=== PATIENT | female | born 1980 | race Caucasian/White ===

== ENCOUNTER → 2019-01-15 | Outpatient (CLI) | payer OTHER, SELFPAY ==
[2019-01-15 11:56] LABS: Bacteria 0 SEEN /hpf (None Seen); Mucous, Urine 0 SEEN /hpf (<or=2+); Red Blood Cells-Urine 0 SEEN /hpf (0-5); White Blood Cells 0 SEEN /hpf (0-5)
[2019-01-15 14:15] LABS: Color, Urine Straw (Yellow); Glucose, Dipstick Normal (Normal); Ketone-Dipstick Negative (Negative); Leukocyte Esterase-Dipstick Negative /ul (Negative); Nitrite-Dipstick Negative (Negative); Occult Blood-Urine 150 /ul (Negative); Protein-Dipstick Negative (Negative); Specific Gravity, Urine 1.005 (1.002-1.030); Urine Bilirubin Dipstick Negative (Negative); Urine Clarity Clear (Clear); Urine Urobilinogen Normal (Normal)
[2019-01-15 14:25] LABS: Anion Gap 5 (5-15); BUN 9 mg/dL (7-18); BUN/Creat Ratio 11.4 RATIO (10-20); Calcium,Total 9.2 mg/dL (8.5-10.1); Chloride 106 mmol/L (98-107); Creatinine, Serum 0.79 mg/dL (0.55-1.02); EST Glomerular Filtration Rate 87 mL/min (>60); Est Glom Filt Rate - Afr Amer 105 mL/min (>60); Glucose 103 mg/dL (74-106); Potassium 3.9 mmol/L (3.5-5.1); Sodium Level 139 mmol/L (136-145)
[2019-01-15 14:26] LABS: Squamous Epithelial Cells - UA 0-5 SEEN /hpf (5-10)
== END | disposition home or self-care (01) ==
LOC: WOBLAB 11:52
PROVIDERS: Visit Provider Obstetrics & Gynecology
DX: R31.9 Hematuria, unspecified (principal)
CPT/HCPCS: 36415; 80048; 81001; 87086; 87088

== ENCOUNTER → 2019-01-17 | Outpatient (CLI) | payer OTHER, SELFPAY ==
--- NOTE | 2019-01-17 15:15 | BI_ITS ---
MAMMOGRAPHY - BILATERAL SCREENING 3-D TOMOSYNTHESIS REASON FOR EXAM: Female, 38 years old. Bilateral Screening 3-D tomosynthesis PERTINENT HISTORY: Mother with breast cancer.. TECHNIQUE: 2-D mammograms and 3-D Tomosynthesis of the breast (s) were performed. CAD was performed. COMPARISON: None. FINDINGS: The breast composition is composed of scattered fibroglandular density. Scattered benign calcifications are seen. No dense spiculated masses or suspicious microcalcifications are identified. No architectural distortion is identified. There is no skin thickening or retraction. There has been no significant change since the prior study. BI/SCREEN MAMM (CAD) W/MAYANK BILAT IMPRESSION: No mammographic signs of malignancy. Routine yearly mammograms recommended. ASSESSMENT CATEGORY: BIRADS Category 1: Negative. A letter regarding these results will be sent to the patient by the facility within 30 days. FOLLOW UP RECOMMENDATION: Yearly follow up mammogram recommended. (A) Approximately 10% of breast cancers are not detected by mammography. A normal mammogram should not delay biopsy of a clinically suspicious abnormality. Electronically Signed: Bernardino Banuelos MD at 8:09 EDT , Service support ,
== END | disposition home or self-care (01) ==
LOC: OPBI 15:12
PROVIDERS: Family Provider Family Medicine; PCP Family Medicine; Referring Provider Obstetrics & Gynecology; Visit Provider Obstetrics & Gynecology
DX: Z12.31 Encounter for screening mammogram for malignant neoplasm of breast (principal); Z80.3 Family history of malignant neoplasm of breast
CPT/HCPCS: 77063; 77067

== ENCOUNTER → 2019-01-19 | Outpatient (CLI) | payer OTHER, SELFPAY ==
--- NOTE | 2019-01-19 12:05 | US_ITS ---
STUDY: RENAL ULTRASOUND - COMPLETE REASON FOR EXAM: Female, 38 years old. Microscopic hematuria TECHNIQUE: Ultrasound evaluation of the kidneys was performed with real-time and static [place]-scale imaging. COMPARISON: None. FINDINGS: RIGHT KIDNEY: Normal location of the right kidney, which is normal in size. The right kidney measures 12.1 x 5.3 x 4.6 cm. There is a normal cortex of the right kidney. The renal cortex measures 1.0 cm. There is no right renal mass or cyst. There are no right renal calculi. There is moderate hydronephrosis of the right kidney. DISTAL RIGHT URETER: There is non-visualization of the distal right ureter. There is no demonstrated right ureterovesical junction calculus. There is a visualized right ureteral jet. LEFT KIDNEY: Normal location of the left kidney, which is normal in size. The left kidney measures 11.7 x 5.1 x 4.8 cm. There is a normal cortex of the left kidney. The renal cortex measures 1.2 cm. There is no left renal mass or cyst. There are no left renal calculi. There is moderate hydronephrosis of the left kidney. DISTAL LEFT URETER: There is non-visualization of the distal left ureter. There is no demonstrated left ureterovesical junction calculus. There is a visualized left ureteral jet. AORTA: There is no elongation or tortuosity of the abdominal aorta. I.V.C.: The IVC is patent. 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
== END | disposition home or self-care (01) ==
LOC: US 12:00
PROVIDERS: Family Provider Family Medicine; PCP Family Medicine; Referring Provider Obstetrics & Gynecology; Visit Provider Obstetrics & Gynecology
DX: N13.39 Other hydronephrosis (principal); R31.9 Hematuria, unspecified
CPT/HCPCS: 76770

== ENCOUNTER → 2019-01-24 | Outpatient (CLI) | payer OTHER, SELFPAY ==
[2019-01-24 15:46] LABS: Hematocrit 37.4 % (37-47); Hemoglobin 13.1 g/dL (12.0-15.0); Mean Corpuscular Volume 91.4 fL (81-99); Mean Platelet Vol. 9.9 fl (6.2-12.0); Platelet Count 183 K/mm3 (150-450); RBC Distribution Width CV 13.2 % (11.6-14.6); RBC Distribution Width SD 43.8 fl (35.1-43.9); Red Blood Count 4.09 M/mm3 (4.2-5.4); White Blood Count 6.3 K/mm3 (4.4-11.0)
== END | disposition home or self-care (01) ==
LOC: WOBLAB 14:52
PROVIDERS: Visit Provider Obstetrics & Gynecology
DX: R16.1 Splenomegaly, not elsewhere classified (principal)
CPT/HCPCS: 36415; 85027

== ENCOUNTER → 2019-02-05 | Outpatient (CLI) | payer OTHER, SELFPAY ==
--- NOTE | 2019-02-05 15:47 | CT_ITS ---
STUDY: CT ABDOMEN AND PELVIS WITH AND WITHOUT CONTRAST REASON FOR EXAM: Female, 38 years old. Bilateral hydronephrosis RADIATION DOSAGE (If Supplied By Facility): CTDIvol = ( 9.72 ) mGy, DLP = ( 1399.77 ) mGycm TECHNIQUE: Transaxial images were obtained from the dome of the diaphragm to the symphysis pubis without oral contrast. 100 IV Isovue 300 was administered. Sagittal and coronal images were reconstructed. Individualized dose optimization techniques were used for this CT. COMPARISON: None. FINDINGS: The visualized lung bases are unremarkable. The visualized heart appears normal. The liver appears within normal limits. Normal gallbladder and extrahepatic biliary system. Normal spleen. Normal pancreas. Normal bilateral adrenal glands. There is a severe right hydronephrosis. There is marked dilatation of the right renal pelvis. There is no hydroureter. No obstructing calculus is identified. There is a mild left hydronephrosis. There is no left hydroureter. No obstructing calculus is seen. Normal visualized stomach. Normal small intestine. Normal colon. There is non-visualization of the appendix. Normal abdominal aorta. Normal inferior vena cava. Normal retroperitoneum. Normal urinary bladder. Uterus is retroverted. Endometrium is thickened measuring up to 17 mm. There is a 2.4 cm right adnexal cyst most likely ovarian in origin. There is a tiny amount of free fluid in the deep pelvis. There is a tiny fat-containing umbilical hernia. Normal osseous structures. CT/CT Abd/Pelvis W/WO Contrast IMPRESSION: 1. Severe right hydronephrosis. There is moderate dilatation of the right renal pelvis. There is no hydroureter. No obstructing calculus is seen. 2. Mild left hydronephrosis. There is no left hydroureter. No left ureteral obstructing calculus is seen. 3. The above findings are suggestive of chronic UPJ obstruction, possibly congenital. 4. Retroverted uterus. Endometrium is thickened measuring up to 17 mm. 5. There is a 2.4 cm right adnexal cyst most likely ovarian in origin. 6. There is a tiny fat-containing umbilical hernia. 7. There is a tiny amount of free fluid in the deep pelvis. Electronically Signed: Dusty Ibarra MD at 21:32 EDT , Service support ,
== END | disposition home or self-care (01) ==
LOC: CT 15:44
PROVIDERS: Family Provider Family Medicine; PCP Family Medicine; Referring Provider Nurse Practitioner Adult Health; Visit Provider Nurse Practitioner Adult Health
DX: N13.30 Unspecified hydronephrosis (principal)
CPT/HCPCS: 74178; Q9967

== ENCOUNTER → 2019-02-09 | Outpatient (CLI) | payer OTHER, SELFPAY ==
--- NOTE | 2019-02-09 09:37 | NM_ITS ---
CLINICAL: 38-year-old female with reported history of bilateral hydronephrosis. 99m Tc MAG3 DIURETIC RENAL SCINTIGRAPHY COMPARISON: Renal ultrasound report 01/19/2019, CT of the abdomen-pelvis report 02/05/2019 FINDINGS: Following the intravenous administration of 10.5 mCi of 99m Tc MAG3, renal images reveal: 1. The flow study demonstrates relatively symmetric, normal arterial phase distribution of the radiopharmaceutical to the bilateral kidneys. 2. Immediate static delayed nephrogram images depict relatively prompt, homogeneous tracer concentration is identified in both kidneys. Collecting structure visualization is demonstrated approximately 3 minutes following tracer injection bilaterally. Washout of the radiopharmaceutical by the renal parenchyma appears qualitatively normal in both kidneys. Increasing significant collecting system activity is identified in both kidneys during 25 minutes of pre-Lasix sequential image acquisition. 3. The iwxro-vd-lexc ratio of total renal parenchymal function was calculated to be 49/51. Furosemide 10 mg was administered intravenously. The post Lasix T 1/2 washout of the bilateral kidney collecting system activity was calculated to be approximately 4 minutes in the left kidney 9.5 minutes regarding the right kidney, (normal < 10 minutes). There is significant tracer distribution identified in the right renal unit following Lasix administration. NM/Renal Scan w/ Pharm Intervent IMPRESSION: 1. There is relative preservation of bilateral renal parenchymal function involving both kidneys. 2. The left and right prominent collecting systems demonstrating normal physiologic response to induced diuresis indicating the presence of significant mechanical and/or functional obstruction. Electronically Signed: Андрей Luther DO at 8:17 EDT Tel , Service support ,
== END | disposition home or self-care (01) ==
LOC: NM 09:33
PROVIDERS: Family Provider Family Medicine; PCP Family Medicine; Referring Provider Urology; Visit Provider Urology
DX: N13.0 Hydronephrosis with ureteropelvic junction obstruction (principal)
CPT/HCPCS: 78708; A9562; J1940

== ENCOUNTER → 2019-02-28 | Outpatient (CLI) | payer OTHER, SELFPAY ==
[2019-02-28 17:56] LABS: AST(SGOT) 20 U/L (15-37); Alanine Aminotransfer ALT/SGPT 23 U/L (13-56); Albumin, Serum 4.1 g/dL (3.2-5.0); Alkaline Phosphatase 41 U/L (45-117); Anion Gap 7 (5-15); BUN 11 mg/dL (7-18); BUN/Creat Ratio 13.2 RATIO (10-20); Bilirubin, Direct 0.29 mg/dL (0.00-0.30); Chloride 108 mmol/L (98-107); Creatinine, Serum 0.83 mg/dL (0.55-1.02); EST Glomerular Filtration Rate 82 mL/min (>60); Est Glom Filt Rate - Afr Amer 99 mL/min (>60); Globulin 3.1 g/dL (2.2-4.2); Glucose 114 mg/dL (74-106); Potassium 3.6 mmol/L (3.5-5.1); Protein, Total 7.2 g/dL (6.4-8.2); Sodium Level 141 mmol/L (136-145)
== END | disposition home or self-care (01) ==
LOC: MFPLAB 15:01
PROVIDERS: Family Provider Family Medicine; PCP Family Medicine; Referring Provider Family Medicine; Visit Provider Family Medicine
DX: N13.30 Unspecified hydronephrosis (principal); E80.4 Gilbert syndrome
CPT/HCPCS: 36415; 80048; 80076

== ENCOUNTER 2019-03-14 05:49 | Day surgery (SDC) | payer OTHER, SELFPAY ==
[2019-03-08 10:23] VITALS: BP 141/79; PULSE 73; RESP 16; TEMP 36.9; O2SAT 100; BMI 20.7
--- NOTE | 2019-03-08 10:58 | SDCEKG_ITS ---
Test Reason : Blood Pressure : / mmHG Vent. Rate : 069 BPM Atrial Rate : 069 BPM P-R Int : 104 ms QRS Dur : 090 ms QT Int : 390 ms P-R-T Axes : 063 080 036 degrees QTc Int : 417 ms Sinus rhythm with short PA Otherwise normal ECG Confirmed by KATIA KNIGHT, MELVIN ([id number]), acquisition editor COLBY SKELTON ([id number]) on 03/12/2019 3:18:41 PM Referred By: Alberto Doshi Confirmed By:DAVID MONTALVO MD
[2019-03-08 11:34] LABS: Hematocrit 38.1 % (37-47); Hemoglobin 13.6 g/dL (12.0-15.0); Mean Corp Hgb Conc 35.7 g/dL (32-36); Mean Corpuscular Hgb 32.8 pg (27.0-32.0); Mean Corpuscular Volume 91.8 fL (81-99); Mean Platelet Vol. 9.7 fl (6.2-12.0); Platelet Count 190 K/mm3 (150-450); RBC Distribution Width CV 13.1 % (11.6-14.6); RBC Distribution Width SD 43.6 fl (35.1-43.9); Red Blood Count 4.15 M/mm3 (4.2-5.4); White Blood Count 5.1 K/mm3 (4.4-11.0)
[2019-03-14] VITALS (12 sets, daily range): BP systolic 101–137; BP diastolic 62–87; PULSE 52–79; RESP 14–18; TEMP 36.4–37.3; O2SAT 99–100; BMI 19.8
[2019-03-14 06:17] LABS: Internal QC Validated? YES +Cl - CLEAR BKGD; Pregnancy, Urine Negative Negative
[2019-03-14] MEDS: Lactated Ringers 1,000 ML 75 ML IV ×3 (06:40→12:54)
[2019-03-14] MEDS: Cefazolin 2 GM in 0.9% Normal Saline 100 ML IV (07:28)
[2019-03-14] MEDS: Bupivacaine Mpf 0.5% 30 ML VIAL (09:56)
--- NOTE | 2019-03-14 09:58 | PCM.OPRPT ---
Report of Operation Date of Procedure: 03/14/19 Pre-Operative Diagnosis: Right UPJ obstruction Post-Operative Diagnosis: Right UPJ obstruction with crossing vessel causing the obstruction Surgery/Procedure Performed:: Right laparoscopic robotic assisted dismembered pyeloplasty Description of Surgical Findings:: 38-year-old female who was found to have a very large dilated right renal pelvis she is been experiencing intermittent right flank pain. Renal scan was done that demonstrated very large dilated renal pelvis no clear obstruction. But given her intermittent pain and very large pelvis I think she has some sort of obstruction so I am recommending that we proceed with repair of the right UPJ obstruction with a dismembered pyeloplasty. We talked about the procedure itself how is done the risk of anesthesia, risk of bleeding infection, that she will need a stent in for 4 to 6 weeks afterwards and the risk that the surgical procedure will fail. 38-year-old female was taken back to the operating room after smooth induction of anesthesia she was placed supine on the table we then placed her in full lateral position with the right side up left side down place an axillary roll below her axilla arms out on the side and then her arms and holders. We flexed the table some and top leg straight but leg bottom leg was bent we flexed all and padded all pressure points after the patient was secured to the table in a meticulous fashion to make sure all her pressure points were padded the abdomen was shaved prepped and draped in usual sterile fashion. I then made a small incision in the umbilicus infiltrated this with Marcaine and then advanced the Veress needle into the peritoneal cavity and then insufflated the peritoneal cavity with CO2 gas once we had a good pneumoperitoneum then I placed my camera trocar which was a 10 mm trocar in the umbilicus and then superior to this I placed my 8 mm trocar and then inferior to this in place another 8 mm robotic trocar. We then docked the robot and then I docked with the scissors and the pro-grasp in my right and left arm and started with the dissection first thing I did was incised the white line of Toldt reflected the colon off the kidney from the liver all the way down to the pelvis she did have a very large floppy liver over the kidney. Immediately when we were inside the abdomen we could see this extremely large distended renal pelvis as we dissected down onto the renal pelvis I then freed up the blood vessels over the top the renal pelvis and then to set the renal pelvis on traction and then identified the ureter and then he can immediately identify that the ureter was crossing below and inferior vessel both in artery and the vein that was feeding the kidney inferiorly and could see that as the renal pelvis with the stent this would cause the ureter to kink around the blood vessels to the kidney causing obstruction of the right renal pelvis. After this was recognized and I continued the dissection of the ureter below the apparent inferior pole renal artery and vein these were not transected but spared I then dissected inferior to this to dissect the ureter free I put a vessel loop around the ureter to assist in dissection to avoid any grasping of the ureter itself to avoid any trauma to the ureter I then once that the ureter was completely dissected inferior to the crossing vessels then I went back up to the insertion point of the ureter to the pelvis during this dissection as I was pulling the ureter straight the renal pelvis then drained through the ureter even before cutting it so just straighten out the ureter and allow the renal renal pelvis the drain completely normal but given the fact that the ureter was crossing below the crossing vessels I decided to proceed with a dismembered pyeloplasty in order to pass the ureter over the top of the crossing vessels that was causing obstruction. We transected the ureter at the insertion site of the renal pelvis the ureter was then freed up and then passed below the crossing vessels and then crossed above the crossing vessels I then spatulated the ureter the ureter was wide open the insertion into the renal pelvis was wide open I decided not to do a reduction of the size of the renal pelvis since the problem was not the size of the renal pelvis but was a crossing vessels and by doing a dismembered pyeloplasty was placed in the ureter on top of the vessels and therefore alleviating the obstruction. We spatulated the ureter make sure the ureter orientation was perfect placed our first a stitch from the ureter to the renal pelvis we then placed 2 more stay stitches posterior of the ureter to hold the ureter in good position we then passed a wire top-down through the ureter all the way down to the bladder and then the past pushes stent top-down is a 6 [place] by 26 cm stent once a stent was in proper position and pulled the wire and then we do not the end of the stent into the renal pelvis I then continued with the pyeloplasty and I ran interrupted stitches all the way from posterior to anterior reanastomose seen in the ureter to the renal pelvis over the over the stent in a meticulous fashion. During this dissection then the anastomosis was complete this completed the dismember pyeloplasty there was good drainage from the renal pelvis into the ureter directly and the ureter again was placed on top of the crossing vessels that was causing obstruction. We then undocked the robot and we used our 8 mm camera to then closed our umbilical 1012 port with 3 stitches and then we then we closed the other ports with subcuticular stitches. Patient anesthetic is being reversed and she taken back to the PACU in good condition and there was a successful repair of the UPJ obstruction. Caused by a crossing vessel. Type of Anesthesia:: General Drains: stent right side - Admit VTE Documentation VTE Present on Admission: No
[2019-03-14] MEDS: Pantoprazole Sodium 20 MG Tablet PO (12:48)
[2019-03-14] MEDS: Docusate Sodium 100 MG Capsule PO ×2 (12:48→21:08)
[2019-03-14] MEDS: Magnesium Hydroxide 30 ML UDC 15 ML PO (12:49)
[2019-03-14] MEDS: Ketorolac 15 MG/ML Vial IV ×3 (12:49→23:20)
[2019-03-14] MEDS: Cefazolin 1 GM/50 ML BAG IV ×2 (15:04→21:08)
--- NOTE | 2019-03-14 16:48 | NURSING ---
C/O DIZZINESS WHILE LYING IN BED. SCOPOLAMINE PATCH REMOVED. WILL WAIT TO GET UP TO CHAIR LATER.
[2019-03-14] MEDS: 0.9% NaCl Peripheral Flush Adult/Peds IV (18:34)
[2019-03-15] MEDS: Lactated Ringers 1,000 ML 75 ML IV (03:26)
[2019-03-15 03:35] VITALS: BP 113/75; PULSE 52; RESP 16; TEMP 36.5; O2SAT 100
[2019-03-15 05:43] LABS: Hematocrit 33.5 % (37-47); Hemoglobin 11.9 g/dL (12.0-15.0); Mean Corp Hgb Conc 35.5 g/dL (32-36); Mean Corpuscular Hgb 32.6 pg (27.0-32.0); Mean Corpuscular Volume 91.8 fL (81-99); Mean Platelet Vol. 9.9 fl (6.2-12.0); Platelet Count 154 K/mm3 (150-450); RBC Distribution Width CV 13.2 % (11.6-14.6); RBC Distribution Width SD 43.6 fl (35.1-43.9); Red Blood Count 3.65 M/mm3 (4.2-5.4); White Blood Count 9.6 K/mm3 (4.4-11.0)
[2019-03-15 06:09] LABS: Anion Gap 7 (5-15); BUN 5 mg/dL (7-18); BUN/Creat Ratio 7.6 RATIO (10-20); Calcium,Total 8.2 mg/dL (8.5-10.1); Chloride 107 mmol/L (98-107); Creatinine, Serum 0.66 mg/dL (0.55-1.02); EST Glomerular Filtration Rate 106 mL/min (>60); Est Glom Filt Rate - Afr Amer 129 mL/min (>60); Estimated Creatinine Clearance 109.62 ml/min; Glucose 96 mg/dL (74-106); Potassium 3.7 mmol/L (3.5-5.1); Sodium Level 141 mmol/L (136-145)
[2019-03-15] MEDS: Enoxaparin 40 MG/0.4 ML Syringe SC (06:31)
[2019-03-15] MEDS: Ketorolac 15 MG/ML Vial IV (06:32)
--- NOTE | 2019-03-15 07:37 | DCINST_ITS ---
Discharge Diet: Light diet - advance as tolerated Discharge Activity: Return to Normal Activity Lifting Restrictions: 10 lbs x 6 weeks Call your doctor if your incision/area has: Continuous Slow Oozing, Sudden Increased Bleeding, Increased Pain/ Swelling, Increased Redness, Foul Smelling Discharge, Swelling at the incision site Suture Line Care: Avoid Pulling/Pushing, Avoid Pinching/Bending Allergies/Adverse Reactions: Allergies No Known Allergies Allergy (Verified 03/08/19 10:16) Medications to take at Discharge Ascorbic Acid [Vitamin C] 1,000 mg PO PRN PRN 03/08/19 Daily Super Greens 1 unit PO DAILY 03/08/19 Viral-X 1 - 2 drp PO DAILY 03/08/19 Hydrocodone/Acetaminophen [[place] 5-325 Tablet] 1 ea PO Q4H PRN PRN 5 Days #10 tab 03/15/19 Primary Care Physician: Jalil Krueger MD [Primary Care Provider] - Test Results: Test results from this visit will be discussed in further detail at your follow- up appointment, if applicable. Please Follow Up With: Alberto Doshi MD When: in 2 weeks, please call to make an appointment.
[2019-03-15 08:02] VITALS: BP 128/86; PULSE 60; RESP 18; TEMP 36.7; O2SAT 95
== END 2019-03-15 11:00 | disposition home or self-care (01) ==
LOC: SDC 05:50 → AC 05:51 → MS3 10:50
PROVIDERS: Anesthesiology; Family Provider Family Medicine; PCP Family Medicine; Referring Provider Urology; Visit Provider Urology
PROC: 8E0W4CZ Robotic Assisted Procedure of Trunk Region, Percutaneous Endoscopic Approach (ICD-10-PCS; CPT 50544; principal; 2019-03-14 07:00)
DX: N13.5 Crossing vessel and stricture of ureter without hydronephrosis (principal); Q62.39 Other obstructive defects of renal pelvis and ureter; G25.81 Restless legs syndrome; E80.4 Gilbert syndrome; Z86.2 Personal history of diseases of the blood and blood-forming organs and certain disorders involving the immune mechanism
CPT/HCPCS: 00862; 50544; S2900; 36415; 80048; 81025; 85027; 86850; 86900; 86901; 93005; J7120; A4216; C1769; C2617; J2405

== ENCOUNTER 2019-06-14 13:24 | Day surgery (SDC) | payer OTHER, SELFPAY ==
[2019-03-14 06:30] VITALS: BMI 19.8
[2019-06-12 13:27] LABS: Hemoglobin 14.3 g/dL (12.0-15.0); Mean Corp Hgb Conc 35.8 g/dL (32-36); Mean Corpuscular Hgb 32.4 pg (27.0-32.0); Mean Corpuscular Volume 90.7 fL (81-99); Mean Platelet Vol. 9.7 fl (6.2-12.0); Platelet Count 198 K/mm3 (150-450); RBC Distribution Width CV 12.9 % (11.6-14.6); RBC Distribution Width SD 42.2 fl (35.1-43.9); Red Blood Count 4.41 M/mm3 (4.2-5.4); White Blood Count 6.5 K/mm3 (4.4-11.0)
[2019-06-12 13:32] LABS: International Normalized Ratio 1.2; Prothrombin Time (Protime)PT. 14.7 SECONDS (11.7-14.9)
[2019-06-12 13:33] LABS: Partial Thromboplast Time 32.4 Seconds (24.1-36.2)
--- NOTE | 2019-06-13 08:45 | PCM.HPOB.BLA ---
- Problem List (1) Abnormal uterine bleeding Status: Acute History and Physical Date of Admission: 06/14/19 Date: 06/12/2019 Name: ALDO MEJIAS Age: 39 Date of : 1980 HISTORY OF PRESENT ILLNESS: On 06/12/2019, Aldo Mejias, a 39 year old female 2 2 0 0 4, presented for: -- Pre-Op -- Aldo is here for pre-op. Planned hysteroscopy with polypectomy. Consents are signed and packet provided. LMT as above. Completed urologic evaluation and repair of UPJ obstruction with resolution of pain. Notes continued prolonged menstrual bleeding up to 9-10 days, no intermenstrual bleeding or postcoital bleeding. Prior US suggested endometrial polyp. ULTRASOUND 01/15/19: UTERUS: 8.7 x 6.3 x 5.9 cm. ENDOMETRIAL ECHO: Fluid filled and somewhat irregular in appearance. Anterior wall measures .3 cm and posterior wall measures .4 cm. Overall measurement is 1.3 cm. The irregular texture within the Endometrium does not contain blood flow. RIGHT OVARY: 3 x 2.4 x 1.9 cm and contains a 1.3 x .9 x 1.1 cm follicle. LEFT OVARY: Not seen vaginally or abdominally. FREE FLUID: There is a trace amount of free fluid within the posterior cul de sac. OTHER PERTINENT FINDINGS: There is a large amount of peristalsing bowel seen throughout the pelvis. While performing the abdominal pelvic ultrasound, bilateral Kidneys were viewed and the right renal pelvis measures 8 cm in maximum dimension. The left renal pelvis measures 4 cm. ALLERGIES: No Known Drug Allergies MEDICATIONS HISTORY: Patient is also takin. No Meds REVIEW OF SYSTEMS: GENERAL - Denies fever, or chills SKIN - Denies skin changes EYES - Denies visual changes EARS - Denies difficulty hearing NOSE - Denies nasal congestion or bleeding MOUTH - Denies sore throat or difficulty swallowing NECK - Denies pain or swelling RESPIRATORY - Denies shortness of breath or wheezing CARDIOVASCULAR - Denies palpitations or chest pain GASTROINTESTINAL - Denies nausea, vomiting, diarrhea, constipation GENITOURINARY - irregular bleeding MUSCULOSKELETAL - Denies joint or muscle pain NEUROLOGICAL - Denies localized numbness or weakness PSYCHIATRIC - Denies depression or anxiety ENDOCRINE - Denies heat or cold intolerance, weight loss or gain HEMATO-IMMUNOLOGIC - Denies excesive bleeding with cuts PAST HISTORY: Breast/Ovarian/Colon Cancers - Mother had Breast Cancer approximately age 50-60 Infections - Chicken pox Illnesses - arthritis, jaundice d/t gilberts syndrome, elevated BP with prgnancy Accidents - None History of Abnormal PAPS - Denies Hospitalizations - Childbirth and see surgery last pap 06/2015; SURGICAL HISTORY: 1. c-sections 2001, 2003, 2005, 2010 2. Staples Teeth Removal 3. cerclage 2003, 2005, 2009 MENSTRUAL HISTORY: LMP Known?- DefiniteAmount/Duration - 7 days, Regularity - Regular, Frequency - monthly days, LMP - 05/27/19, Age Onset Menarche - 13 PAST PREGNANCIES: Total Pregnancies - 4; Full Term Pregnancies - 2; Premature - 2; Abortions, Induced - 0; Abortions, Spontaneous - 0; Ectopics - 0; Multiple Births - 0; Living Children - 4 FAMILY HISTORY: Mother - Carcinoma of breast; MaternalGrandparent - Heart disorder; PaternalGrandparent - FH: Congestive heart failure; SOCIAL HISTORY: Alcohol Use - denies drinking Smoking - denies smoking Diet - no special diet Lifestyle - Exercise - minimal Seat Belt Use - always Employer - stay at home Illicit Drug Use - denies use of street drugs Sexual Activity - Residence - owns a home Spouse-Sig Other Name - Dillon Fonsecaer Spouse-Sig Other Occupation - [employer] Children Name(s) - Nas Garcia Marla, Kenna Control - NFP, Condoms PHYSICAL EXAMINATION BP- 140/86 Sitting, Right arm, regular cuff Temp- 98.8 Taken Orally Weight- 139.00 lbs Height- 67.25 inch BMI:21.65 CONSTITUTIONAL - NAD, well nourished, and well developed SKIN - No rash, lesions, or ulcers HEENT - normocephalic, atraumatic, sclerae anicteric LUNGS - clear to auscultation and normal respiratory rate and rhythm CARDIAC - normal heart sounds and physiologic rhythm, normal s1, normal s2 and no s3 NEUROLOGICAL - normal gait, normal balance, normal motor PSYCHIATRIC - A and O to time, place, person, mood and affect Laboratory Tests 06/12/19 06/12/19 06/12/19 Range/Units 12:56 12:56 12:56 WBC 6.5 (4.4-11.0) K/mm3 RBC 4.41 (4.2-5.4) M/mm3 Hgb 14.3 (12.0-15.0) g/dL Hct 40.0 (37-47) % MCV 90.7 (81-99) fL MCH 32.4 H (27.0-32.0) pg MCHC 35.8 (32-36) g/dL RDW Std Deviation 42.2 (35.1-43.9) fl RDW Coeff of Liliana 12.9 (11.6-14.6) % Plt Count 198 (150-450) K/mm3 MPV 9.7 (6.2-12.0) fl PT 14.7 (11.7-14.9) SECONDS INR 1.2 APTT 32.4 (24.1-36.2) Seconds Blood Type A POSITIVE Antibody Screen NEGATIVE ASSESSMENT: PLAN BY DIAGNOSIS: 1. Irregular Menstruation, Unspecified US findings reviewed with pt and c/w likely polyp Discussed polyp pathology Hysteroscopic polypectomy, D&C Procedural r/b/i/a reviewed Consents signed and reviewed Discussed anticipated hospitalization and recovery NPO prior to procedure
[2019-06-14 13:42] VITALS: BP 139/78; PULSE 82; RESP 15; TEMP 36.7; O2SAT 100; BMI 20.4
[2019-06-14 13:49] LABS: Internal QC Validated? YES +Cl - CLEAR BKGD; Pregnancy, Urine Negative Negative
[2019-06-14] MEDS: Lactated Ringers 1,000 ML 100 ML IV (13:54)
--- NOTE | 2019-06-14 14:55 | EMB_PTH ---
PATIENT: ALDO MEJIAS LOC: [facility] [place] U#:[id number] AGE/SX: 39/F ROOM: RE06/14/[address]: Dr. Coreen Smallwood MD : 1980 BED: DIS: 06/14/2019 SPEC #: [id number] RECD: 06/14/19 16:21 STATUS: TRAMAINE REQ #: [id number] FREDDIE: 06/14/19 14:[address]: Coreen Gonzalez DEPT: SURGICAL PATHOLOGY RECD BY: David Tovar ENTERED: 06/15/19 10:54 SP TYPE: ENDOM BX/C OTHR DR: Dr. Jalil Krueger MD Tissues: Endometrium, NOS Procedures: Surgery Specimen Level IV HEADER OPERATION: Hysteroscopy, D & C Symphion PRE-OP DIAGNOSIS: Abnormal uterine bleeding TISSUE SUBMITTED: Endometrial curettings MICROSCOPIC DIAGNOSIS Endometrial curettings: Secretory endometrium. SJ:jesus 06/18/19 MICROSCOPIC DESCRIPTION Slides are reviewed. GROSS DESCRIPTION Received in fixative is one container labeled with the patient's name and designated Endometrial curettings. The specimen consists of multiple irregular fragments of ramon soft tissue that in aggregate measure 5 x 3 x 0.3 cm. The entire specimen is submitted in two cassettes. / SJ:rg 06/15/19 TC:4 CPT: 36051
[2019-06-14 16:02] VITALS: BP 135/79; BP 139/78; PULSE 77; RESP 16; TEMP 37.3; O2SAT 99
[2019-06-14 16:06] VITALS: BP 129/81; BP 139/78; PULSE 80; RESP 16; O2SAT 100
--- NOTE | 2019-06-14 16:08 | DCINST_ITS ---
Discharge Diet: No Restrictions Discharge Activity: Return to Normal Activity, May not drive while taking narcotic pain medications., May Shower, - - May take a tub bath in 1-2 weeks May resume sexual activity in: 4 weeks Call your doctor if you observe: Fever of 101 or Higher, Inability to urinate, Inability to have a bowel movement, Using more than one pad per hour, Shortness of breath, Chest pain, Calf discomfort, Uncontrolled pain Allergies/Adverse Reactions: Allergies No Known Allergies Allergy (Verified 06/14/19 13:34) Medications to take at Discharge Ascorbic Acid [Vitamin C] 1,000 mg PO PRN PRN 03/08/19 Daily Super Greens 1 unit PO DAILY 03/08/19 Viral-X 1 - 2 drp PO DAILY 03/08/19 Multivitamin [Daily Multiple Vitamin] 1 ea PO DAILY 06/11/19 Ibuprofen 600 mg PO TID PRN #30 tab 06/14/19 The following prescriptions were given: Ibuprofen 600 mg PO TID PRN #30 tab PRN Reason: Pain Or Fever Primary Care Physician: Jalil Krueger MD [Primary Care Provider] - Test Results: Test results from this visit will be discussed in further detail at your follow- up appointment, if applicable. Please Follow Up With: Coreen Myles MD
[2019-06-14 16:10] VITALS: BP 126/82; BP 139/78; PULSE 74; RESP 16; O2SAT 99
--- NOTE | 2019-06-14 16:10 | PCM.OPRPT ---
Problem List (1) Abnormal uterine bleeding Status: Acute Report of Operation Date of Procedure: 06/14/19 Pre-Operative Diagnosis: Excessive and frequent menstruation with regular cycle, endometrial polyp Post-Operative Diagnosis: Excessive and frequent menstruation with regular cycle, endometrial polyp Surgery/Procedure Performed:: Hysteroscopy, dilation and curettage, Symphion polypectomy Description of Surgical Findings:: bilateral tubal ostia normal, normal uterine cavity structural steel fitter: None Type of Anesthesia:: IV Sedation, Local Anesthesiologist: Zay Cordova Estimated Blood Loss (mL): 5 Description of Procedure: Patient was brought to the operating and placed in dorsal supine position. IV sedation administered. She was placed in dorsal lithotomy. The perineum was prepped and draped in sterile fashion. A weighted speculum was placed vaginally and single tooth tenaculum grasped the anterior cervix. A paracervical block was placed for a total of 20cc of 1% lidocaine. The uterus was sounded to 8cm and cervix dilated. The Symphion hysteroscopy was performed. The Symphion resectoscope was introduced and anterior polyp removed. A sampling of the endometrium was also resected. The hysteroscope was removed. Sharp curettage was subsequently performed. Hysteroscopy again performed and the uterus was without defects. The procedure was complete. The tenaculum was removed from the cervix and speculum removed from the vagina. The patient was placed into dorsal supine position, awakened and transferred to the recovery room without complication. - Admit VTE Documentation VTE Present on Admission: No VTE Mechan Device Prophylaxis: SCD's VTE Pharm Prophylaxis ordered?: No
[2019-06-14 16:15] VITALS: BP 129/79; BP 139/78; PULSE 81; RESP 16; TEMP 37.3; O2SAT 100
[2019-06-14 17:01] VITALS: BP 128/79; BP 139/78; PULSE 82; RESP 16; TEMP 37.2; O2SAT 100
== END 2019-06-14 17:04 | disposition home or self-care (01) ==
LOC: SDC 13:24 → AC 13:25
PROVIDERS: Anesthesiology; Family Provider Family Medicine; PCP Family Medicine; Referring Provider Obstetrics & Gynecology; Visit Provider Obstetrics & Gynecology
PROC: 0UB98ZZ Excision of Uterus, Via Natural or Artificial Opening Endoscopic (ICD-10-PCS; CPT 58558; principal; 2019-06-14 14:40)
DX: N84.0 Polyp of corpus uteri (principal); N92.0 Excessive and frequent menstruation with regular cycle; M19.90 Unspecified osteoarthritis, unspecified site; Z86.2 Personal history of diseases of the blood and blood-forming organs and certain disorders involving the immune mechanism
CPT/HCPCS: 58558; 36415; 81025; 85027; 85610; 85730; 86850; 86900; 86901; 88305; J7120

== ENCOUNTER → 2020-03-18 | Outpatient (CLI) | payer OTHER, SELFPAY ==
[2020-03-18 10:43] VITALS: BMI 20.7
[2020-03-24 01:43] LABS: HPV APTIMA, High Risk Negative (Negative)
== END | disposition home or self-care (01) ==
LOC: LABSPEC 16:14
PROVIDERS: PCP Family Medicine; Referring Provider Obstetrics & Gynecology; Visit Provider Obstetrics & Gynecology
DX: Z12.4 Encounter for screening for malignant neoplasm of cervix (principal)
CPT/HCPCS: 87624; 88175; G0145

== ENCOUNTER → 2020-12-19 08:51 | Outpatient (CLI) | payer OTHER, SELFPAY ==
[2020-03-18 10:43] VITALS: BMI 20.7
--- NOTE | 2020-12-19 08:56 | RAD_ITS ---
Patient swallowed barium without difficulty. The esophagus was well delineated with barium no evidence of obstruction or filling defect. This was followed by swallowing tablet of barium this remained for some time in the middle of the esophagus then passed down to the stomach after drinking water. No evidence of hiatal hernia or gastroesophageal reflux was noted. The stomach and duodenum are unremarkable. RAD/Esophagus Single Contrast IMPRESSION: Negative esophagogram. Electronically Signed: Hernesto Gilbert, at 10:53 EDT Tel , Service support ,
== END ==
PROVIDERS: PCP Family Medicine; Referring Provider Family Medicine; Visit Provider Family Medicine
DX: R13.10 Dysphagia, unspecified (principal)
CPT/HCPCS: 74220

== ENCOUNTER 2021-08-19 07:48 | Outpatient (CLI) | payer OTHER, SELFPAY ==
--- NOTE | 2021-08-19 07:50 | BI_ITS ---
MAMMOGRAPHY - BILATERAL SCREENING REASON FOR EXAM: Female, 41 years old. Routine annual screening examination. PERTINENT HISTORY: Mother with breast cancer. TECHNIQUE: Digital bilateral breast mayank (3D mammographic acquisition) in the CC and MLO projections. 2-D mediolateral oblique (MLO) and craniocaudad (CC) views of both breasts were obtained. CAD: Full Field Digital Mammography with Computer Added Detection was performed. COMPARISON: Comparison is made with prior study dated 01/17/2019. FINDINGS: Breast Composition: The breasts are heterogeneously dense, which may obscure small masses. There are no dominant masses or suspicious calcifications. No other significant abnormalities are identified. There has been no significant change since the prior study. BI/SCRN MAMM (CAD)W/MAYANK BILAT IMPRESSION: Stable bilateral screening mammogram. Yearly follow-up mammogram recommended. (A) ASSESSMENT CATEGORY: BIRADS Category 1: Negative. A letter regarding these results will be sent to the patient by the facility within 30 days. Approximately 10% of breast cancers are not detected by mammography. A normal mammogram should not delay biopsy of a clinically suspicious abnormality. [id number] Electronically Signed: Moody Reeves MD at 9:40 EST ,
== END 2021-08-19 23:59 | disposition home or self-care (01) ==
LOC: OPBI 07:48
PROVIDERS: PCP Family Medicine; Visit Provider Nurse Practitioner Women's Health
DX: Z12.31 Encounter for screening mammogram for malignant neoplasm of breast (principal)
CPT/HCPCS: 77063; 77067

== ENCOUNTER → 2022-09-03 | Outpatient (CLI) | payer OTHER, SELFPAY ==
--- NOTE | 2022-09-03 07:28 | BI_ITS ---
MAMMOGRAPHY - BILATERAL SCREENING REASON FOR EXAM: Female, 42 years old. Routine annual screening examination. PERTINENT HISTORY: Mother with breast cancer. TECHNIQUE: Digital bilateral breast mayank (3D mammographic acquisition) in the CC and MLO projections. 2-D mediolateral oblique (MLO) and craniocaudad (CC) views of both breasts were obtained. CAD: Full Field Digital Mammography with Computer Added Detection was performed. COMPARISON: Comparison is made with prior study dated August 19, 2021 and January 17, 2019. FINDINGS: Breast Composition: The breasts are heterogeneously dense, which may obscure small masses. There are no dominant masses or suspicious calcifications. No other significant abnormalities are identified. There has been no significant change since the prior study. BI/SCRN MAMM (CAD)W/MAYANK BILAT IMPRESSION: Stable bilateral screening mammogram. Yearly follow-up mammogram recommended. (A) ASSESSMENT CATEGORY: BIRADS Category 1: Negative. A letter regarding these results will be sent to the patient by the facility within 30 days. Approximately 10% of breast cancers are not detected by mammography. A normal mammogram should not delay biopsy of a clinically suspicious abnormality. [id number] Electronically Signed: Moody Reeves MD at 8:44 EST ,
== END | disposition home or self-care (01) ==
LOC: OPBI 07:27
PROVIDERS: PCP Family Medicine; Referring Provider Nurse Practitioner Women's Health; Visit Provider Nurse Practitioner Women's Health
DX: Z12.31 Encounter for screening mammogram for malignant neoplasm of breast (principal)
CPT/HCPCS: 77063; 77067

== ENCOUNTER → 2022-09-24 | Outpatient (CLI) | payer OTHER, SELFPAY ==
[2022-09-24 09:31] LABS: ALB/GLOB Ratio 1.3 RATIO (0.9-2.4); AST(SGOT) 19 U/L (15-37); Alanine Aminotransfer ALT/SGPT 23 U/L (13-56); Albumin, Serum 4.3 g/dL (3.2-5.0); Alkaline Phosphatase 41 U/L (45-117); Anion Gap 6 (5-15); BUN 12 mg/dL (7-18); BUN/Creat Ratio 13.4 RATIO (10-20); Calcium,Total 9.4 mg/dL (8.5-10.1); Chloride 106 mmol/L (98-107); Cholesterol 191 mg/dL (200); Creatinine, Serum 0.89 mg/dL (0.55-1.02); EST Glomerular Filtration Rate 74 mL/min (>60); Est Glom Filt Rate - Afr Amer 89 mL/min (>60); Globulin 3.2 g/dL (2.2-4.2); Glucose 98 mg/dL (74-106); High Density Lipoprotein 72 mg/dL; Protein, Total 7.5 g/dL (6.4-8.2); Sodium Level 138 mmol/L (136-145); Thyroid Stim Hormone (TSH) 2.86 uIU/mL (0.358-3.74); Triglycerides 59 mg/dL; Very Low Density Lipoprotein 12 mg/dL (5-40)
== END | disposition home or self-care (01) ==
PROVIDERS: PCP Family Medicine; Referring Provider Nurse Practitioner Women's Health; Visit Provider Nurse Practitioner Women's Health
DX: E80.4 Gilbert syndrome (principal); Z13.1 Encounter for screening for diabetes mellitus; Z13.220 Encounter for screening for lipoid disorders; Z13.29 Encounter for screening for other suspected endocrine disorder; Z13.21 Encounter for screening for nutritional disorder
CPT/HCPCS: 36415; 80053; 80061; 82306; 84443

== ENCOUNTER → 2023-09-16 | Outpatient (CLI) | payer OTHER, SELFPAY ==
--- NOTE | 2023-09-16 08:13 | BI_ITS ---
MAMMOGRAPHY - BILATERAL SCREENING REASON FOR EXAM: Female, 43 years old. Routine annual screening examination. PERTINENT HISTORY: Mother with breast cancer. TECHNIQUE: Digital bilateral breast mayank (3D mammographic acquisition) in the CC and MLO projections. 2-D mediolateral oblique (MLO) and craniocaudad (CC) views of both breasts were obtained. CAD: Full Field Digital Mammography with Computer Added Detection was performed. COMPARISON: Comparison is made with prior study dated September 03, 2022 and August 19, 2021. FINDINGS: Breast Composition: The breasts are heterogeneously dense, which may obscure small masses. There are no dominant masses or suspicious calcifications. No other significant abnormalities are identified. There has been no significant change since the prior study. BI/SCRN MAMM (CAD)W/MAYANK BILAT IMPRESSION: Stable bilateral screening mammogram. Yearly follow-up mammogram recommended. (A) ASSESSMENT CATEGORY: BIRADS Category 1: Negative. A letter regarding these results will be sent to the patient by the facility within 30 days. Approximately 10% of breast cancers are not detected by mammography. A normal mammogram should not delay biopsy of a clinically suspicious abnormality. [id number] Electronically Signed: Moody Reeves MD at 9:04 EDT ,
== END | disposition home or self-care (01) ==
LOC: OPBI 08:11
PROVIDERS: PCP Family Medicine; Referring Provider Nurse Practitioner Women's Health; Visit Provider Nurse Practitioner Women's Health
DX: Z12.31 Encounter for screening mammogram for malignant neoplasm of breast (principal); Z80.3 Family history of malignant neoplasm of breast
CPT/HCPCS: 77063; 77067

== ENCOUNTER → 2023-09-20 | Outpatient (CLI) | payer OTHER, SELFPAY ==
[2023-09-20 10:16] LABS: ALB/GLOB Ratio 1.4 RATIO (0.9-2.4); AST(SGOT) 18 U/L (15-37); Alanine Aminotransfer ALT/SGPT 20 U/L (13-56); Albumin, Serum 4.1 g/dL (3.2-5.0); Alkaline Phosphatase 43 U/L (45-117); Anion Gap 9 (5-15); BUN 12 mg/dL (7-18); BUN/Creat Ratio 13.9 RATIO (10-20); Calcium,Total 9.2 mg/dL (8.5-10.1); Chloride 105 mmol/L (98-107); Creatinine, Serum 0.87 mg/dL (0.55-1.02); EST Glomerular Filtration Rate 76 mL/min (>60); Est Glom Filt Rate - Afr Amer 92 mL/min (>60); Glucose 99 mg/dL (74-106); Potassium 3.9 mmol/L (3.5-5.1); Protein, Total 7.1 g/dL (6.4-8.2); Sodium Level 141 mmol/L (136-145)
[2023-09-20 10:17] LABS: Vitamin D,25 Hydroxy 28.6 ng/mL
== END | disposition home or self-care (01) ==
PROVIDERS: PCP Family Medicine; Visit Provider Nurse Practitioner Women's Health
DX: Z13.21 Encounter for screening for nutritional disorder (principal); E80.4 Gilbert syndrome
CPT/HCPCS: 36415; 80053; 82306

== ENCOUNTER → 2024-04-24 | Outpatient (CLI) | payer OTHER, SELFPAY ==
--- OUTSIDE RECORDS SUMMARY | 2024-04-24 19:56 | XMS RPT_ITS | CCD ---
Author Organization [facility] Results Test Name Value Interpretation Reference Range Facil ity CNPNon 07-22-2021 CNPN Telephone (GENSWS) ALDO MEJIAS ([id number]) 1980 Enma Alberts* Date Time Provider Department 07/22/21 ANUM CASTRO During your visit today, we recorded the following information about you: Deepika Russell Admin Sec 07/22/2021 12:13 PM Signed Pt called wondering about her pantoprozole. She is out of that medication. She doesn't take it consistently as she used to but when she is off of it sometimes the symptoms return. She just needs to know if she can continue that medication or is there something else she should take. Anum Castro PA-C 07/22/2021 2:40 PM Signed Called and spoke with patient. Patient noted symptoms had improved significantly with taking pantoprazole but flared up recently and she is out of medication. She admits she also sometimes eats and drinks right before bed which worsens symptoms. Sent in refill for 30 days of pantoprazole, and reviewed dietary and lifestyle modifications recommended for GERD and gastritis. Patient is instructed to follow up with her PCP after finishing the pantoprazole for recheck and further instructions. If symptoms persist, consider referral to [place]. Patient verbalized understanding of all above and agreed with the plan. Allergies As of Date: 07/22/2021 (No Known Allergies) Date Reviewed: 01/26/2021 Reviewed by: Anum Castro PA-C - Fully Assessed Reason for Visit: Medication Question [9938] Cmt: patient update Order(s):pantoprazole DR (PROTONIX) 20 mg tabletTake 1 tablet by mouth once daily.Disp: 30 tabletRfl: 0 Prescriptions as of 07/22/2021 - pantoprazole DR (PROTONIX) 20 mg tablet Take 1 tablet by mouth once daily. - Multivitamin capsule Take 1 capsule by mouth once daily. Problem List As Of Date 07/22/2021 Noted Resolved Dysphagia [R13.10] 01/07/2021 01/07/2021 Prescriptions ordered this encounter Disp Refills Start End PANTOPRAZOLE 20 MG TABLET,DELAYED RE* 30 t* 0 07/22/2021 Route: ORAL Sig: Take 1 tablet by mouth once daily. Medications Discontinued During This Encounter Prescriptions - pantoprazole sodium (PANTOPRAZOLE ORAL) (Discontinued) Take 1 tablet by mouth once daily. 20mg PO daily - pantoprazole DR (PROTONIX) 20 mg tablet (Discontinued) Take 1 tablet by mouth once daily. Encounter Status:Closed by ANUM CASTRO on 07/22/21 Normal [facility] CNOVon 01-21-2021 CNOV Office Visit (GENSWS ) ALDO MEJIAS ([id number]) 1980 [place]* Date Time Provider Department 01/21/21 2:00 PM ANUM CASTRO GENSWS During your visit today, we recorded the following information about you: Temperature Pulse Weight 98.6 degrees 80/minute 62.3 kg Anum Castro PA-C 01/21/2021 2:48 PM Addendum Continue omeprazole for 2-3 months Follow up with Dr. Krueger Dietary and lifestyle modifications as discussed Follow up if symptoms worsen or persist The following instructions are important for you related to your office visit today with the [facility] Surgeons. INSTRUCTIONS FOR PEPTIC ULCER DISEASE - GERD I discussed with you the findings of your upper endoscopy. Factors that increase acid production include smoking and stress. If you smoke, stopping smoking will often cure these issues without needing other medications. Over the counter medications including antiacids and acid reducing medications including H2 blockers (Zantac and the like) and proton pump inhibitors (prilosec, prevacid and the like) neutralize or prevent acid production. Prescription strength proton pump inhibitors (PPIs) may be necessary if your symptoms persist. Carafate may be added to PPI treatment in refractory cases. Avoiding smoking, alcohol and antiinflammatory medications are important in the successful treatment of reflux esophagitis and peptic diseases. Other factors that contribute to GERD and esophagitis are being overweight, eating large meals before laying down and certain foods. Weight loss will help improve many GERD complaints. Remaining upright after eating large meals and having a small supper will also help symptoms. Avoiding food that contribute to reflux - chocolate, caffeine, cheddar cheese may also help. Follow up upper endoscopy may be recommended to assure healing of the esophagus. New or worsening symptoms such are epigastric pain, burning, difficulty swallowing or food sticking should be relayed to your physician. Feeling full early after eating, or black, tarry, foul smelling stools are also worrisome. If you have any difficulties or concerns, you should contact our office immediately. If you note any additional difficulties, questions, or concerns, you should contact our office immediately @ [phone] and ask to be transferred to the General Surgery department. Anum Castro PA-C 01/26/2021 12:01 PM Signed FOLLOW UP VISIT - ENDOSCOPY NAME: Aldo [facility] NO.: [id number] DATE OF SERVICE: 01/21/2021 : 1980 REFERRING PHYSICIAN: Jalil Krueger MD Aldo is a patient I am following for dysphagia. Dr. Casanova performed upper endoscopy on 01/05/21. The patient was found to have gastritis and normal nasopharynx. Pathology demonstrated: FINAL DIAGNOSIS Stomach, biopsy - Gastric oxyntic-type mucosa with no pathologic diagnostic abnormality; see comment. SS 01/08/2021 COMMENT No microorganisms morphologically compatible with H. Pylori are identified on routine MOISE stained sections. The patient notes no complaints since the procedure. She notes that her swallowing symptoms seem to have improved. She states she followed up with her PCP regarding her swallowing study and was told that this came back without concerning findings. She feels the PPI she was started on by her PCP has been helping, but is almost out of this. VITALS: Pulse 80, temperature 37 ?C (98.6 ?F), weight 62.3 kg (137 lb 6.4 oz), last menstrual period 12/30/2020, SpO2 100 %. General: patient is alert, cooperative, pleasant and in no acute distress On examination, the abdomen is benign. Assessment IMPRESSION: s/p upper endoscopy for evaluation of dysphagia complaints, unremarkable PLAN: The operative findings and pathology report were reviewed with the patient, and the patient has had the opportunity to ask questions and have questions answered. Recommend continuing PPI for 1-2 months in addition to dietary and lifestyle modifications as discussed, refill sent. Patient verbalized understanding of all above and agreed with the plan Diagnoses: (K21.9) GERD without esophagitis (primary encounter diagnosis) (K29.50) Mild chronic gastritis I spent 25 minutes in the visit, with more than 50% of the total [id number] time of the visit in counseling / coordination of care. Anum Castro PA-C Referring Provider: SELF [200] Allergies As of Date: 01/21/2021 (No Known Allergies) Date Reviewed: 01/21/2021 Reviewed by: Pako Francis LPN - Fully Assessed Primary Visit Diagnosis:GERD without esophagitis [K21.9] Other Visit Diagnosis:Mild chronic gastritis [K29.50] Order(s):pantoprazole DR (PROTONIX) 20 mg tabletTake 1 tablet by mouth once daily.Disp: 30 tabletRfl: 1 Prescriptions as of 01/26/2021 - pantoprazole DR (PROTONIX) 20 mg tablet (more content not included)... Normal [facility] ANES POSTPROC EVALon 021 ANES POSTPROC EVAL HNO ID: [id number] Author: Homero Latif MD Service: Anesthesiology Author Type: Anesthesiologist Type: Anesthesia Postprocedure Evaluation Filed: 01/07/2021 9:54 AM Note Text: POST ANESTHESIA EVALUATION NOTE : 1980 Procedure Summary Date: 01/07/21 Room / Location: [facility] A / [facility] Anesthesia Start: 925 Anesthesia Stop: 943 Procedure: EGD WITH BIOPSY (N/A Abdomen) Diagnosis: Dysphagia, unspecified type Surgeons: Percy Casanova MD Responsible Provider: Homero Latif MD Anesthesia Type: MAC ASA Status: 2 Anesthesia Type: MAC Last vitals Vitals Value Taken Time BP 114/61 01/07/21 0945 Temp 36.4 01/07/21 0954 Pulse 74 01/07/21 0952 Resp 17 01/07/21 0952 SpO2 99 % 01/07/21951 Vitals shown include unvalidated device data. Post Anesthesia Patient Status Patient Evaluation: bedside. Anticipated Disposition: phase 2 then home. Neurological Status: aware and responsive. Pulmonary Status: breathing comfortably on room air Airway Control: returned to baseline unsupported. Cardiovascular Status: stable. Pain Management: clinically adequate Postoperative Hydration: acceptable. Intraoperative Events: no significant anesthesia events Post Operative Nausea/Vomiting Status: no significant post operative nausea or vomiting Anesthetic Observations: Recommendation: continue current plan of care. No complications documented. SIGNATURE: Homero Latif MD PATIENT NAME: Aldo Mejias DATE: January 07, 2021 TIME: 9:54 AM CSN: [id number] [facility] ANES PRE-OPon 01-07-2021 ANES PRE-OP HNO ID: [id number] Author: Homero Latif MD Service: Anesthesiology Author Type: Anesthesiologist Type: Anesthesia Preprocedure Evaluation Filed: 01/07/2021 9:09 AM Note Text: ANESTHESIOLOGY DAY OF SURGERY NOTE : 1980 Procedure(s) (LRB): EGD (N/A) Surgeon(s): Percy Casanova MD Estimated body mass index is 20.74 kg/m? as calculated from the following: Height as of 12/23/20: 172.7 cm (5' 8 ). Weight as of 12/23/20: 61.9 kg (136 lb 6.4 oz). Most recent hematocrit and potassium results: No results found for this basename: HCT,HEMATOCRIT,K,POTAS SIUM Relevant Problems No relevant active problems I - PHYSICAL EVALUATION AIRWAY Patient intubated: No. Tracheostomy tube not present Mallampati: I. TM distance: >3 FB. Neck ROM: full ROM without neurological symptoms. Mouth opening: adequate. Short neck: no. Thick neck: no DENTAL Normal dental observations. Dental findings: teeth intact. Additional exam findings: no II - ANESTHESIA PLAN ASA Score: 2 Anesthetic Plan: MAC The patient is not a current smoker. NPO Status: adequate Monitoring plan: standard ASA. Postoperative analgesic plan: parenteral or oral opioids. Anesthetic Risks, Benefits, Alternatives, Personnel Discussed. Consent obtained from: patient.Patient / Surrogate agrees to blood products: blood products not planned DNR status not reviewed with patient and/or family prior to surgery. Significant changes in the patient condition since the History and Physical, not otherwise documented in primary service progress note: no. Potential Anesthesia issues that may suggest increased risk of complications or contraindication to planned procedure: none. Vitals Value Taken Time BP Pulse Resp 16 01/07/21820 Temp 36.1 ?C (97 ?F) 01/07/21820 SpO2 100 % 01/07/21 08 Facility-Administered Medications as of 01/07/2021 Medication Dose Route Frequency - lactated ringers iv infusion 30 mL/hr INTRAVENOUS CONTINUOUS Outpatient Medications as of 01/07/2021 Medication Sig - pantoprazole sodium (PANTOPRAZOLE ORAL) Take 1 tablet by mouth once daily. 20mg PO daily - Multivitamin capsule Take 1 capsule by mouth once daily. I have interviewed and examined the patient. I have reviewed the medical record and/or the pre-anesthesia evaluation, pertinent labs, and test results. This contains updated information obtained within 48 hours of Surgery/Procedure. SIGNATURE: Homero Latif MD PATIENT NAME: Aldo Mejias DATE: January 07, 2021 TIME: 9:08 AM CSN: [id number] Normal [facility] HISTORY PHYSICALon HISTORY PHYSICAL HNO ID: [id number] Author: Percy Casanova MD Service: General Surgery Author Type: Physician Type: HANDP Filed: 01/07/2021 9:31 AM Note Text: UPDATED HISTORY AND PHYSICAL EXAMINATION SERVICE DATE: 01/07/2021 SERVICE TIME: 9:31 AM PHYSICAL EXAM MUST BE COMPLETED ON ADMISSION The History and Physical (completed in the past 30 days) has been reviewed and the patient has been examined. The contents accurately reflect the patient's condition with the following additions or revisions since the HANDP was completed. Examination indicates no changes. This HANDP can be found in the Electronic Medical Record dated 12/23/20. SIGNATURE: Percy Casanova III, MD PATIENT NAME: Aldo Mejias DATE: January 07, 2021 TIME: 9:31 AM Normal [facility] SURGICAL PATHOLOGYon 021 SURGICAL PATHOLOGY Specimen originated from [facility] Specimen #: [id number] Submitting Physician: Percy Casanova M.D. FINAL DIAGNOSIS Stomach, biopsy - Gastric oxyntic-type mucosa with no pathologic diagnostic abnormality; see comment. 01/08/2021 COMMENT No microorganisms morphologically compatible with H. Pylori are identified on routine H&E stained sections. Wendie Toro M.D. (Electronic Signature) _ SPECIMEN SUBMITTED A: ANTRAL BIOPSY CLINICAL DATA DYSPHAGIA, LMP: HCG NEGATIVE, R/O H. PYLORI GROSS DESCRIPTION A. Received in formalin is one piece of ramon, soft tissue measuring 0.4 x 0.2 x 0.2 cm. Totally submitted in one cassette. Gross examination performed at [facility], [address] [place] [address] 01/07/2021 6:39:30 PM Date of Report: 01/08/2021 Date of Procedure: 01/07/2021 Date of Receipt: 01/07/2021 Submitted by: Percy Casanova M.D. Location: [facility] Diagnostic interpretation performed at [facility], [address] [facility] [address]. [place] Number: [id number] [facility] Telephone (Solstice[facility]) ALDO MEJIAS ([id number]) 1980 [place]* Date Time Provider Department 12/24/20 PERCY CASANOVA GENLEXISS During your visit today, we recorded the following information about you: Feroz Wyatt 12/24/2020 8:59 AM Signed 01-07-2021 EGD ' [facility] SURGICAL PHONE NOTE Date of Procedure/Surgery: 01-07-2021 Procedure/Surgery Type: EGD ? SEDATION:MAC Location of Planned Procedure/Surgery: ? [facility] Surgery/Procedure Ordered: Yes COVID Testing Required: (FOR MAC CASES AND ASC PROCEDURES OTHER THAN COLON AND EGD): No Pre-Op Clearance Needed: No Prep Ordered:N/A Prep Instructions given:Yes: Given in the office. Referral Completed:JOAQUÍN to [facility]. Patient Diabetic:No. 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 20mg PO daily - Multivitamin capsule Take 1 capsule by mouth once daily. Problem List As Of Date: 12/24/2020 (None) Encounter Status:Closed by FEROZ WYATT on 01/12/21 [facility] CNOVon 12-23-2020 CNOV Office Visit (GENSWS ) ALDO MEJIAS ([id number]) 1980 Enma Garza Date Time Provider Department 12/23/20 1:00 PM ANUM CASTRO During your visit today, we recorded the following information about you: Temperature Pulse Respiration Blood pressure 98.5 degrees 82/minute 16/minute 120/82 Weight Height 61.9 kg 1.727 m Anum Castro PA-C 12/29/2020 11:20 PM Signed HISTORY AND PHYSICAL Aldo Randell 1980 REFERRING PHYSICIAN: Jalil Krueger, * CHIEF COMPLAINT: Consult HPI: The patient is a 40 year old female referred for endoscopy. Aldo notes a history of progressive dysphagia and food sticking over the last few months. Worse with meats and eggs. Recently switched to Protonix from omperazole by PCP which hels somewhat. She ntoes she recently had a swallowing study completed, has not yet heard results. She is referred by PCP for an EGD. Patient denies any change in bowel habits or other lower GI complaints. Aldo has not undergone prior endoscopy. Patient's past medical history is significant for Gilbert's syndrome and hydronephrosis. She follows with Dr. Jalil Krueger MD in primary care for her chronic medical conditions. Denies known cardiac or pulmonary issues. Denies problems with sedation in the past. PAST MEDICAL HISTORY Diagnosis Date - Gilbert's syndrome PAST SURGICAL HISTORY Procedure Laterality Date - SECTION HX 4 c sections - KIDNEY SURGERY HX 2019 Current Outpatient Medications Medication Sig - pantoprazole sodium (PANTOPRAZOLE ORAL) Take 1 tablet by mouth once daily. 20mg PO daily - Multivitamin capsule Take 1 capsule by mouth once daily. No current facility-administered medications for this visit. ALLERGIES: Patient has no known allergies. PERSONAL HISTORY: Social History Tobacco Use - Smoking status: Never Smoker - Smokeless tobacco: Never Used Substance Use Topics - Alcohol use: Not Currently - Drug use: Never FAMILY HISTORY: History reviewed. No pertinent family history. REVIEW OF SYMPTOMS: The review of systems data was entered by the nurse and reviewed by me Nursing Notes: Pako Francis KAREN 12/23/2020 2:03 PM Signed REVIEW OF SYSTEMS: General: The patient denies fatigue, denies weight loss, denies weight gain, denies feeling hot, and denies feelings of cold. Eyes: The patient denies glaucoma, denies eye injury/surgery, wears glasses or contacts. Ear/Nose/Throat: The patient denies allergies, denies hayfever, denies ear infections, and denies bloody noses. Cardiovascular: The patient denies chest pain, denies heart disease, denies high blood pressure,denies cardiac stent, denies prior heart attack, denies irregular heart beat, denies high cholesterol, denies poor circulation, denies heart failure, other cardiac issues, denies claudication, denies cold feet, denies peripheral arterial stent. Respiratory: The patient denies tuberculosis, denies pneumonia, denies frequent cough, denies pulmonary embolism, denies shortness of breath, and denies coughing up blood. Gastrointestinal: The patient denies difficulty swallowing, NOTES acid reflux, denies ulcers, denies vomiting, NOTES jaundice/hepatitis, denies gallbladder problems, denies black or tarry stools, NOTES hemorrhoids, denies bleeding from rectum, denies diverticulitis, denies constipation, denies diarrhea, denies loss of stool control, and denies hernias. Kidney/Bladder: The patient denies kidney stones, denies urine infections, and denies bloody urine. Skin: The patient denies a history of skin cancer, denies bleeding/changing moles, and denies a history of skin rash. Neurologic: The patient denies a history of epilepsy/convulsions, denies headaches, denies head/spinal injuries, and denies stroke/TIA. Psychiatric: The patient denies psychiatric medications, denies depression, and denies voices, denies substance abuse. Endocrine: The patient denies thyroid disorders, denies diabetes, and denies hormonal problems. Hematologic: The patient denies a history of bruising, denies bleeding, and denies anemia, denies blood clots. Infections: The patient denies a history of measles and mumps, denies rheumatic fever, and denies sexually transmitted diseases. Musculoskeletal: The patient denies back pain/injury, denies back problems, denies sciatica, denies knee/foot trouble, denies arthritis, or denies gout. When was patient's last Mammogram screening? 2019 Last Colonoscopy: N/A Pako Francis LPN I have confirmed and edited as necessary, the PFSH and ROS obtained by others. Anum Castro PA-C PHYSICAL EXAMINATION: General: The patient is 40 year old female, well nourished, well hydrated in no acute distress. The patient is oriented to time, place, and person. VITALS: Blood pressure 120/82, pulse 82, temperature 36.9 ?C (98.5 ?F), temperature source (more content not included)... Normal [facility] Progress note 01-26-2021 Note Date & Type Note Facility 01-26-2021 Note HNO ID: [id number] Author: Anum Castro PA-C Service: ? Author Type: Physician Sandwich Artist Type: Progress Notes Filed: 01/26/2021 12:01 PM Note Text: FOLLOW UP VISIT - ENDOSCOPY NAME: Aldo [facility] NO.: [id number] DATE OF SERVICE: 01/21/2021 : 1980 REFERRING PHYSICIAN: Jalil Krueger MD Aldo is a patient I am following for dysphagia. Dr. Casanova performed upper endoscopy on 01/05/21. The patient was found to have gastritis and normal nasopharynx. Pathology demonstrated: FINAL DIAGNOSIS Stomach, biopsy - Gastric oxyntic-type mucosa with no pathologic diagnostic abnormality; see comment. SS 01/08/2021 COMMENT No microorganisms morphologically compatible with H. Pylori are identified on routine MOISE stained sections. The patient notes no complaints since the procedure. She notes that her swallowing symptoms seem to have improved. She states she followed up with her PCP regarding her swallowing study and was told that this came back without concerning findings. She feels the PPI she was started on by her PCP has been helping, but is almost out of this. VITALS: Pulse 80, temperature 37 ?C (98.6 ?F), weight 62.3 kg (137 lb 6.4 oz), last menstrual period 12/30/2020, SpO2 100 %. General: patient is alert, cooperative, pleasant and in no acute distress On examination, the abdomen is benign. Assessment IMPRESSION: s/p upper endoscopy for evaluation of dysphagia complaints, unremarkable PLAN: The operative findings and pathology report were reviewed with the patient, and the patient has had the opportunity to ask questions and have questions answered. Recommend continuing PPI for 1-2 months in addition to dietary and lifestyle modifications as discussed, refill sent. Patient verbalized understanding of all above and agreed with the plan Diagnoses: (K21.9) GERD without esophagitis (primary encounter diagnosis) (K29.50) Mild chronic gastritis I spent 25 minutes in the visit, with more than 50% of the total jvow-fv-ztaz time of the visit in counseling / coordination of care. Anum Castro PA-C [facility] Progress note 12-23-2020 Note Date & Type Note Facility 12-23-2020 Note HNO ID: [id number] Author: Anum Castro PA-C Service: ? Author Type: Physician Sandwich Artist Type: Progress Notes Filed: 12/29/2020 11:20 PM Note Text: HISTORY AND PHYSICAL Aldo Mejias 1980 REFERRING PHYSICIAN: Jalil Krueger, * CHIEF COMPLAINT: Consult HPI: The patient is a 40 year old female referred for endoscopy. Aldo notes a history of progressive dysphagia and food sticking over the last few months. Worse with meats and eggs. Recently switched to Protonix from omperazole by PCP which hels somewhat. She ntoes she recently had a swallowing study completed, has not yet heard results. She is referred by PCP for an EGD. Patient denies any change in bowel habits or other lower GI complaints. Aldo has not undergone prior endoscopy. Patient's past medical history is significant for Gilbert's syndrome and hydronephrosis. She follows with Dr. Jalil Krueger MD in primary care for her chronic medical conditions. Denies known cardiac or pulmonary issues. Denies problems with sedation in the past. PAST MEDICAL HISTORY Diagnosis Date - Gilbert's syndrome PAST SURGICAL HISTORY Procedure Laterality Date - SECTION HX 4 c sections - KIDNEY SURGERY HX 2019 Current Outpatient Medications Medication Sig - pantoprazole sodium (PANTOPRAZOLE ORAL) Take 1 tablet by mouth once daily. 20mg PO daily - Multivitamin capsule Take 1 capsule by mouth once daily. No current facility-administered medications for this visit. ALLERGIES: Patient has no known allergies. PERSONAL HISTORY: Social History Tobacco Use - Smoking status: Never Smoker - Smokeless tobacco: Never Used Substance Use Topics - Alcohol use: Not Currently - Drug use: Never FAMILY HISTORY: History reviewed. No pertinent family history. REVIEW OF SYMPTOMS: The review of systems data was entered by the nurse and reviewed by al Nursing Notes: Pako Francis LPN 12/23/2020 2:03 PM Signed REVIEW OF SYSTEMS: General: The patient denies fatigue, denies weight loss, denies weight gain, denies feeling hot, and denies feelings of cold. Eyes: The patient denies glaucoma, denies eye injury/surgery, wears glasses or contacts. Ear/Nose/Throat: The patient denies allergies, denies hayfever, denies ear infections, and denies bloody noses. Cardiovascular: The patient denies chest pain, denies heart disease, denies high blood pressure,denies cardiac stent, denies prior heart attack, denies irregular heart beat, denies high cholesterol, denies poor circulation, denies heart failure, other cardiac issues, denies claudication, denies cold feet, denies peripheral arterial stent. Respiratory: The patient denies tuberculosis, denies pneumonia, denies frequent cough, denies pulmonary embolism, denies shortness of breath, and denies coughing up blood. Gastrointestinal: The patient denies difficulty swallowing, NOTES acid reflux, denies ulcers, denies vomiting, NOTES jaundice/hepatitis, denies gallbladder problems, denies black or tarry stools, NOTES hemorrhoids, denies bleeding from rectum, denies diverticulitis, denies constipation, denies diarrhea, denies loss of stool control, and denies hernias. Kidney/Bladder: The patient denies kidney stones, denies urine infections, and denies bloody urine. Skin: The patient denies a history of skin cancer, denies bleeding/changing moles, and denies a history of skin rash. Neurologic: The patient denies a history of epilepsy/convulsions, denies headaches, denies head/spinal injuries, and denies stroke/TIA. Psychiatric: The patient denies psychiatric medications, denies depression, and denies voices, denies substance abuse. Endocrine: The patient denies thyroid disorders, denies diabetes, and denies hormonal problems. Hematologic: The patient denies a history of bruising, denies bleeding, and denies anemia, denies blood clots. Infections: The patient denies a history of measles and mumps, denies rheumatic fever, and denies sexually transmitted diseases. Musculoskeletal: The patient denies back pain/injury, denies back problems, denies sciatica, denies knee/foot trouble, denies arthritis, or denies gout. When was patient's last Mammogram screening? 2019 Last Colonoscopy: N/A Pako Francis LPN I have confirmed and edited as necessary, the PFSH and ROS obtained by others. Anum Castro PA-C PHYSICAL EXAMINATION: General: The patient is 40 year old female, well nourished, well hydrated in no acute distress. The patient is oriented to time, place, and person. VITALS: Blood pressure 120/82, pulse 82, temperature 36.9 ?C (98.5 ?F), temperature source Temporal, resp. rate 16, height 172.7 cm (5' 8 ), weight 61.9 kg (136 lb 6.4 oz), last menstrual period 03/02/2014, SpO2 100 %. Body mass index is 20.74 kg/m?. HEENT: Normal cephalic, ataumatic, pupils are equally round, sclera are anicteric, mucous membranes are moist, oropharynx is clear. Neck márquez (more content not included)... [facility] Summary Purpose Family History No Family History Records FoundNo Family History Records Found Advance Directives No Advanced Directives Records FoundNo Advanced Directives Records Found Additional Source Comments INFORMATION SOURCE (unrecogn ized section and content) DATE CREATED AUTHOR 01/10/2021 [facility] DATE CREATED AUTHOR AUTHOR'S ORGANIZ ATION 07/29/2021 [facility] FOR RECORDS PERTAINING TO PATIENTS WHO ARE OR HAVE BEEN ENROLLED IN A CHEMICAL DEPENDENCY/SUBSTANCEABUSE PROGRAM, SOME INFORMATION MAY BE OMITTED. This clinical summary was aggregated from multiple sources. Caution should be exercised in using it in the provision of clinical care. This summary normalizes information from multiple sources, and as a consequence, information in this document may materially change the coding, format and clinical context of patient data. In addition, data may be omitted in some cases. CLINICAL DECISIONS SHOULD BE BASED ON THE PRIMARY CLINICAL RECORDS. [facility] [employer] [facility]. provides no warranty or guarantee of the accuracy or completeness of information in this document.
== END | disposition home or self-care (01) ==
LOC: MFPLAB 15:48
PROVIDERS: PCP Family Medicine
DX: N39.0 Urinary tract infection, site not specified (principal)
CPT/HCPCS: 87086; 87088

== ENCOUNTER → 2024-09-21 | Outpatient (CLI) | payer OTHER, SELFPAY ==
--- NOTE | 2024-09-21 09:15 | BI_ITS ---
EXAM: SCRN MAMM (CAD)W/MAYANK BILAT 09/21/2024 CLINICAL HISTORY: F, Age 44 y/o , SCREENING FOR BREAST CANCER TECHNIQUE: Bilateral screening digital breast tomosynthesis with 2D and 3D images. Computer aided detection. COMPARISON: Prior exam(s) dated 09/16/2023, 09/03/2022. FINDINGS: TISSUE DENSITY: The breast tissue is composed of scattered area of fibroglandular density. Bilateral Breast Mammographic Findings: No significant masses, calcifications or other abnormalities are identified. BI/SCRN MAMM (CAD)W/MAYANK BILAT IMPRESSION: Right Breast: BIRADS 1 NEGATIVE. Left Breast: BIRADS 1 NEGATIVE. OVERALL FINAL ASSESSMENT: BIRADS 1 NEGATIVE. RECOMMENDATION: Routine annual follow-up in 1 Year A letter with findings and recommendations will be mailed to the patient. Reading Location: [id number]
== END | disposition home or self-care (01) ==
LOC: OPBI 09:14
PROVIDERS: PCP Family Medicine; Referring Provider Nurse Practitioner Women's Health; Visit Provider Nurse Practitioner Women's Health
DX: Z12.31 Encounter for screening mammogram for malignant neoplasm of breast (principal)
CPT/HCPCS: 77063; 77067

== ENCOUNTER → 2024-10-03 | Outpatient (CLI) | payer OTHER, SELFPAY | END | disposition home or self-care (01) | LOC: LABSPEC 15:00 | PROVIDERS: PCP Family Medicine; Referring Provider Nurse Practitioner Family; Visit Provider Nurse Practitioner Family | DX: Z12.4 Encounter for screening for malignant neoplasm of cervix (principal) | CPT/HCPCS: 87624; 88175; G0145 ==

== ENCOUNTER → 2025-06-16 | Outpatient (CLI) | payer OTHER, SELFPAY | END | disposition home or self-care (01) | LOC: LABSPEC 06-17 10:40 | PROVIDERS: PCP Family Medicine; Visit Provider Nurse Practitioner Family | DX: R30.0 Dysuria (principal) | CPT/HCPCS: 87086; 87088; 87186 ==